=== PATIENT | male | born 1985 | race Two or more races ===

== ENCOUNTER 2019-09-28 14:19 | Emergency (ER) | payer OTHER, SELFPAY ==
[2019-09-28] MEDS ORDERED: Lidocaine 1% PF 5 ML VIAL ONE (14:23)
[2019-09-28] MEDS ORDERED: Adacel (T-DAP) 0.5 ML SYRINGE ONE (14:36)
== END 2019-09-28 14:47 | disposition home or self-care (01) ==
LOC: BURERS 14:19
DX: S61.216A Laceration without foreign body of right little finger without damage to nail, initial encounter (principal); F17.210 Nicotine dependence, cigarettes, uncomplicated; W23.0XXA Caught, crushed, jammed, or pinched between moving objects, initial encounter
CPT/HCPCS: 12001; 90471; 90715

== ENCOUNTER 2019-12-27 05:20 | Emergency (ER) | payer SELFPAY ==
[2019-12-27] MEDS ORDERED: Ibuprofen 200 MG TAB ONE (05:39)
== END 2019-12-27 05:51 | disposition home or self-care (01) ==
LOC: BURERS 05:20
DX: M79.645 Pain in left finger(s) (principal); F17.210 Nicotine dependence, cigarettes, uncomplicated
CPT/HCPCS: 99283

== ENCOUNTER 2020-07-31 10:09 | Emergency (ER) | payer SELFPAY ==
[2020-07-31] MEDS ORDERED: Boostrix 0.5 ML (Tdap) VIAL ONE (11:23)
== END 2020-07-31 11:27 | disposition home or self-care (01) ==
LOC: BURERS 10:09
DX: S01.01XA Laceration without foreign body of scalp, initial encounter (principal); F17.210 Nicotine dependence, cigarettes, uncomplicated; Z23 Encounter for immunization; W22.8XXA Striking against or struck by other objects, initial encounter; Y93.01 Activity, walking, marching and hiking; Y99.0 Civilian activity done for income or pay
CPT/HCPCS: 12001; 90471; 90715